=== PATIENT | female | born 1990 | race Caucasian/White ===

== ENCOUNTER 2016-11-29 08:16 | Emergency (ER) | payer OTHER, BC ==
[~2016-11-29] VITALS: Ht 170.2 cm; Wt 63.6 kg
[~2016-11-29 08:16] MED LIST: ACET50TA PO; FIOR1CAP PO; FIORCAP3 PO; IBUP80TA PO; VITAPRTA PO
[2016-11-29 08:40] VITALS: BP 129/85
[2016-11-29] MEDS ORDERED: DERMABOND TOPICAL SKIN ADHESIVE TOP ONE (09:30)
[2016-11-29] MEDS ORDERED: IBUP80TA PO (09:30)
[2016-11-29] MEDS ORDERED: KEFL500C17 PO (09:30)
[2016-11-29] MEDS ORDERED: CEPHALEXIN 500 MG CAP PO ONE (09:45)
[2016-11-29] MEDS ORDERED: IBUPROFEN 800 MG TAB PO ONE (09:45)
== END 2016-11-29 09:44 | disposition home or self-care (01) ==
LOC: M ED 08:16
DX: S61.211A Laceration without foreign body of left index finger without damage to nail, initial encounter (principal); W27.2XXA Contact with scissors, initial encounter; Y92.019 Unspecified place in single-family (private) house as the place of occurrence of the external cause; Y93.89 Activity, other specified; Y99.8 Other external cause status; J45.909 Unspecified asthma, uncomplicated; Z91.018 Allergy to other foods

== ENCOUNTER → 2017-01-25 | Outpatient (REF) | payer BC ==
[~2017-01-25] MED LIST changes: +KEFL500C17 PO
[2017-01-25 11:40] LABS: BASO # 0.1 10^3/uL (0.0-0.2); BASO % 1.2 % (0.0-1.0); EOS # 0.4 10^3/uL (0.0-0.50); EOS % 6.6 % (0.0-3.0); IMMATURE GRANULOCYTE % 0.3 % (0-0); LYMPH # 1.9 10^3/uL (1.5-6.5); LYMPH % 28.7 % (24.0-44.0); MEAN CORPUSCULAR HEMOGLOBIN 32.2 pg (27.0-33.0); MEAN CORPUSCULAR HGB CONC 34.8 g/dl (32.0-36.5); MEAN CORPUSCULAR VOLUME 92.5 fl (80.0-96.0); MONO # 0.6 10^3/uL (0.0-0.8); MONO % 8.7 % (0.0-5.0); NEUTROPHILS # 3.6 10^3/uL (1.8-7.7); NEUTROPHILS % 54.5 % (36.0-66.0); PLATELET COUNT, AUTOMATED 365 10^3/uL (150-450); WHITE BLOOD COUNT 6.7 10^3/uL (4.0-10.0)
[2017-01-25 12:28] LABS: ALBUMIN 4.1 GM/DL (3.2-5.2); ALBUMIN/GLOBULIN RATIO 1.46 (1.00-1.93); ALKALINE PHOSPHATASE 59 U/L (45-117); ALT/SGPT 17 U/L (12-78); ANION GAP 7 MEQ/L (8-16); AST/SGOT 10 U/L (7-37); BILIRUBIN,TOTAL 0.7 MG/DL (0.2-1.0); BLOOD UREA NITROGEN 17 MG/DL (7-18); CALCIUM LEVEL 9.2 MG/DL (8.5-10.1); CARBON DIOXIDE LEVEL 29 MEQ/L (21-32); CHLORIDE LEVEL 106 MEQ/L (98-107); CHOLESTEROL LEVEL 136 MG/DL (<200); CREATININE FOR GFR 0.77 MG/DL (0.55-1.02); FREE T4 1.07 NG/DL (0.76-1.46); GLOMERULAR FILTRATION RATE > 60.0 (>60); GLUCOSE, FASTING 81 MG/DL (70-105); POTASSIUM SERUM 4.4 MEQ/L (3.5-5.1); SODIUM LEVEL 142 MEQ/L (136-145); TOTAL PROTEIN 6.9 GM/DL (6.4-8.2); TRIGLYCERIDES LEVEL 35 MG/DL (<150)
== END ==
LOC: M SFHCCLAY 08:00
PROVIDERS: ATTEND Nurse Practitioner Family
DX: R03.0 Elevated blood-pressure reading, without diagnosis of hypertension (principal); G43.719 Chronic migraine without aura, intractable, without status migrainosus

== ENCOUNTER → 2017-07-28 | Outpatient (REF) | payer BC | LOC: M LAB REF 17:06 | DX: Z01.411 Encounter for gynecological examination (general) (routine) with abnormal findings (principal) | CPT/HCPCS: G0123 ==

== ENCOUNTER → 2017-11-01 | Outpatient (REF) | payer BC | LOC: M LAB REF 09:21 | DX: Z34.81 Encounter for supervision of other normal pregnancy, first trimester (principal); Z36.89 Encounter for other specified antenatal screening | CPT/HCPCS: 87086 ==

== ENCOUNTER → 2017-12-22 | Outpatient (CLI) | payer BC | LOC: M RAD 13:30 | DX: Z34.82 Encounter for supervision of other normal pregnancy, second trimester (principal); Z36.89 Encounter for other specified antenatal screening; Z3A.19 19 weeks gestation of pregnancy | CPT/HCPCS: 76811 ==

== ENCOUNTER → 2017-12-26 | Outpatient (REF) | payer BC | LOC: M LAB REF 13:08 | DX: Z34.82 Encounter for supervision of other normal pregnancy, second trimester (principal); Z36.89 Encounter for other specified antenatal screening | CPT/HCPCS: 87086 ==

== ENCOUNTER → 2018-02-07 | Outpatient (CLI) | payer BC ==
[~2018-02-07] MED LIST changes: -ACET50TA PO; +MAPA500T17 PO
[2018-02-07 14:19] LABS: HEMOGLOBIN 12.5 g/dl (12.0-15.5); MEAN CORPUSCULAR HEMOGLOBIN 32.8 pg (27.0-33.0); MEAN CORPUSCULAR HGB CONC 34.7 g/dl (32.0-36.5); MEAN CORPUSCULAR VOLUME 94.5 fl (80.0-96.0); PLATELET COUNT, AUTOMATED 288 10^3/uL (150-450); RED BLOOD COUNT 3.81 10^6/uL (4.00-5.40); WHITE BLOOD COUNT 12.2 10^3/uL (4.0-10.0)
== END ==
LOC: M LAB 11:48
PROVIDERS: ATTEND Advanced Practice Midwife
DX: Z34.82 Encounter for supervision of other normal pregnancy, second trimester (principal)

== ENCOUNTER → 2018-04-19 | Outpatient (REF) | payer BC ==
[~2018-04-19] MED LIST changes: -MAPA500T17 PO; +MAPA500T2 PO
== END ==
LOC: M LAB REF 17:04
PROVIDERS: ATTEND Advanced Practice Midwife
DX: Z34.83 Encounter for supervision of other normal pregnancy, third trimester (principal); Z3A.00 Weeks of gestation of pregnancy not specified

== ENCOUNTER 2018-05-10 06:16 | Outpatient (CLI) | payer BC ==
[~2018-05-10] VITALS: Ht 170.2 cm; Wt 81.0 kg
[2018-05-10 06:36] VITALS: BP 116/72
--- NOTE | 2018-05-10 07:24 | IPN ---
DATE: 05/10/2018 Geovanna is a 27-year-old, 2, para 1-0-0-1, at 38-6/7 weeks gestation with an expected date of confinement (EDC) of 05/18/2018 based on last menstrual period and confirmed by first trimester ultrasound. She presents to labor and delivery today with report of onset of contractions at 0330 that got closer together and more uncomfortable. She does however report that the contractions have spaced out since leaving home and arriving to labor and delivery. She denies vaginal bleeding or leakage of fluid. The fetus has been active. care was initiated at [facility] in the first trimester. course complicated by a personal history of asthma, cystic fibrosis carrier, father of the baby was tested and is not a carrier. OBSTETRICAL HISTORY: March 2015, 38-5/7 weeks, 6 pounds 12 ounces female, vaginal delivery, no complications. OBSTETRIC LABS: A+. Antibody screen negative. Pap normal. Rubella immune. VDRL nonreactive. Hepatitis B surface antigen negative. HIV negative. Hepatitis C antibody nonreactive. Gonorrhea and chlamydia negative. She did decline genetic serum screening labs. Gestational diabetic screening negative at 72. Her GBS is negative. PAST MEDICAL HISTORY: Cystic fibrosis carrier, asthma, childhood varicella. SURGERIES: Nasal surgery. FAMILY HISTORY: Hemophilia, cystic fibrosis, diabetes, hypertension, heart disease and thyroid disorder. SOCIAL HISTORY: The patient is . Her is at bedside. She is a nonsmoker. She denies alcohol and drug use. No history of any sexually transmitted infections. She denies history of abuse - physical, sexual and emotional. ALLERGIES: TREE NUTS. CURRENT MEDICATIONS: - vitamin - Fioricet p.r.n. for headache. OBJECTIVE: BP is 116/72. She is alert and oriented times three. She is in no discomfort. She is smiling and talkative, texting on her phone and conversing with her . heart rate is 145 with moderate variability, positive accelerations, no decelerations. There has been one isolated contraction in 15 minutes. Sterile Vaginal Exam: 2 cm dilated, 90% effaced, -3 station. No bloody show with exam. ASSESSMENT: Intrauterine at 38-6/7 weeks. heart rate category one. Not in active labor. PLAN: Discharge the patient home. She is to follow up as scheduled for routine appointment. I did review signs and symptoms of active labor, kick counts and access to care as well as other danger signs to report. The patient and her partner had their questions answered.
== END 2018-05-10 06:50 | disposition home or self-care (01) ==
LOC: M LDO 06:16
PROVIDERS: ATTEND Advanced Practice Midwife
DX: O47.1 False labor at or after 37 completed weeks of gestation (principal); Z3A.38 38 weeks gestation of pregnancy
CPT/HCPCS: 59025; G0378; G0463

== ENCOUNTER 2018-05-12 00:34 | Outpatient (CLI) | payer BC ==
--- NOTE | 2018-05-12 01:28 | IPNPDOC ---
Text Note Date of Service The patient was seen on 05/12/18. NOTE Outpatient 27yo BLAIRE 05/18/18. Presents @ 39w1d with reports of stronger UC this evening. Denies LOF or bleeding. Fetus active Cat I tracing Irregular UC SVE unchanged from previous exam, /2, moderate texture Discharged home. Routine precautions. Keep appt Monday Aimee Rico CNM May 12, 2018 01:28
== END 2018-05-12 01:30 | disposition home or self-care (01) ==
LOC: M LDO 00:34
PROVIDERS: ATTEND Advanced Practice Midwife
DX: O47.1 False labor at or after 37 completed weeks of gestation (principal); Z3A.39 39 weeks gestation of pregnancy
CPT/HCPCS: 59025; G0378; G0463

== ENCOUNTER 2018-05-15 18:40 | Inpatient (IN) | payer BC ==
[~2018-05-15] VITALS: Ht 170.2 cm; Wt 82.0 kg
[2018-05-15] MEDS ORDERED: LACTATED RINGER'S 1000 ML IV STA (19:00)
[2018-05-15] MEDS ORDERED: LR 1,000 ML IV SCH ×2 (19:00→20:43)
--- NOTE | 2018-05-15 19:16 | NUR ---
L&D H&P HPI: 27 year old at 39+4 weeks estimated gestation. Expected date of confinement: 05/18/2018. dated by her LMP c/w first TM US. Presents to day with painful, frequent uterine contractions and spontaneous rupture of membranes. Denies vaginal bleeding. Reports regular movement. course uncomplicated thus far. labs: Blood type A+, antibody screen negative, rubella immune, VDRL nonreactive , hepatitis B surface antigen negative, HIV negative, hepatitis C antibody negative, GC/CT negative, aneuploidy/maternal serum screening: declined, 1 hour glucose challenge test: 74, GBS negative. Vaccinations: Tdap 03/13/18 Flu vaccine 12/29/17 Radiology/OB US: no anomalies or placental abnormalities detected. History Past medical history: asthma Surgical history: Nasal Medications: PNV Allergies: NKDA CLINICAL QUALITY MANAGER history: no dysplasia or STI/gHSV OB history: Mar 2015, 38+5 weeks, , uncomplicated. Social history: no t/e/d Family history: DM, HTN, heart disease, thyroid dysfunction Objective Vitals: Normotensive, normal heart rate, afebrile Heart: Regular rate and rhythm. No murmurs, rubs or gallops. Lungs: Clear to auscultation bilaterally. No wheezes, crackles, rales or rhonchi. Abdomen: Uterine fundal height consistent with dates. No guarding or rebound tenderness. Extremities: No clubbing, cyanosis or edema. Normal deep tendon reflexes. Sterile vaginal exam: 5 cm, 100 %effacement, -1 station, cephalic, grossly ruptured External monitoring: heart rate category 1 Tocodynamometer: contractions occurring every 2-5min. Assessment/Plan 27 year old at 39+4 weeks gestation. Diagnosis: active labor at term. Reassuring and maternal status. -Admit to labor and delivery with routine labs and orders -External monitoring and tocodynamometer -Pediatrics and anesthesia consultations as needed. -Augment labor with Pitocin as needed Dr. Remigio Jacques, DO, FACOG
[2018-05-15 19:24] VITALS: BP 137/81
[2018-05-15 19:28] LABS: HEMATOCRIT 37.5 % (36.0-47.0); HEMOGLOBIN 13.3 g/dl (12.0-15.5); MEAN CORPUSCULAR HEMOGLOBIN 33.9 pg (27.0-33.0); MEAN CORPUSCULAR HGB CONC 35.5 g/dl (32.0-36.5); MEAN CORPUSCULAR VOLUME 95.7 fl (80.0-96.0); PLATELET COUNT, AUTOMATED 197 10^3/uL (150-450); RED BLOOD COUNT 3.92 10^6/uL (4.00-5.40); WHITE BLOOD COUNT 18.1 10^3/uL (4.0-10.0)
[2018-05-15] MEDS ORDERED: FENTANYL 2MCG/ML ROPIVACAINE 0.2% IN 0.9% NACL 100ML IVBAG As Ordered ONE (19:30)
[2018-05-15] MEDS ORDERED: LACTATED RINGER'S 1000 ML IV PRN (19:42)
[2018-05-15] MEDS ORDERED: ONDANSETRON 4MG/2ML VIAL (J2405) IV PRN ×2 (19:42→20:45)
[2018-05-15] MEDS ORDERED: REFRIGERATOR IV KEYS XX PRN (19:42)
[2018-05-15] MEDS ORDERED: FENTANYL/ROPIVACAINE/NACL BAG 100 ML EPIDURAL SCH (19:42)
[2018-05-15] MEDS ORDERED: ePHEDrine SULFATE 25 MG/5 ML(5MG/ML) SYRINGE IV PRN (19:42)
[2018-05-15] MEDS ORDERED: EPIDURAL/PCA KEYS XX PRN (19:42)
[2018-05-15] MEDS ORDERED: NALOXONE INJ 0.4 MG/1 ML VIAL (J2310) IV PRN (19:42)
[2018-05-15] MEDS ORDERED: EPIDURAL COMMENT XX SCH (19:42)
[2018-05-15] MEDS ORDERED: diphenhydrAMINE INJ 50MG/ML VIAL (J1200) IV PRN (19:42)
[2018-05-15] MEDS ORDERED: OXYTOCIN 30 UNITS IN 0.9% NaCl 500ML IV BAG (J2590) As Ordered ONE (19:49)
[2018-05-15] MEDS ORDERED: OXYTOCIN DRIP 30 UNITS in APPROPRIATE DILUENT 1 EA IV SCH (20:43)
[2018-05-15] MEDS ORDERED: RHOGAM 300 MCG (1500 IU) INJ (J2790) IM SCH (20:45)
[2018-05-15] MEDS ORDERED: MEASLES,MUMPS,RUBELLA VACCINE INJ (MMR-II) (90707) SC SCH (20:45)
[2018-05-15] MEDS ORDERED: ACETAMINOPHEN 500 MG TAB PO PRN (20:45)
[2018-05-15] MEDS ORDERED: PROMETHAZINE 25 MG TAB PO PRN (20:45)
[2018-05-15] MEDS ORDERED: DOCUSATE SODIUM 100 MG CAP PO PRN (20:45)
[2018-05-15] MEDS ORDERED: LIDOCAINE 1% MDV 20ML VIAL INFIL ONE (20:45)
--- NOTE | 2018-05-15 20:50 | NUR ---
Delivery note Spontaneous vaginal delivery Estimated gestational age at delivery: 39+4 weeks The active phase and second stage of labor progressed in normal fashion without epidural anesthesia. Patient did not receive Pitocin labor augmentation. heart rate category 1 throughout labor The head delivered left occiput anterior and restituted left occiput transverse. No nuchal cord was noted. The anterior shoulder delivered with gentle downward guidance and the remainder of the body delivered with ease. Cord clamping was delayed for approximately 1 minute after delivery. After doubly clamping the cord, I cut the cord. The was placed on the patient's chest for immediate bonding. data: Apgars 9 and 9. weight 2970 grams 6 pounds, 9 ounces. Time of delivery: 2014. Sex: female The third stage of labor was actively managed with a bolus of IV Pitocin (30 units in 500 mL of normal saline). The placenta delivered completely intact with no missing cotyledons at 2019. A three-vessel cord with a central insertion was noted. After delivery of the placenta, the uterine fundus was approximately 2 cm below the umbilicus and firm. IV Pitocin was continued to maintain uterine tone. A normal, low level of uterine bleeding was noted. The cervix, vagina, vulva and perineum were inspected for lacerations. A second-degree laceration was noted. This was repaired with 3-0 Vicryl in typical fashion under local anesthesia. Excellent hemostasis was noted. Estimated blood loss: 200ml All sponges, needles, and instruments were accounted for per TELECOMMUNICATIONS ENGINEER department protocol. Remigio Jacques D.O., F.A.C.O.G.
[2018-05-15] MEDS: IBUPROFEN 800 MG TAB PO PRN (20:52)
[2018-05-15 22:59] VITALS: BP 118/66
[2018-05-15] MEDS: DIBUCAINE 1% OINTMENT 30GM TOP PRN (23:56)
[2018-05-16 06:07] VITALS: BP 118/75
--- NOTE | 2018-05-16 08:38 | NUR ---
PPD#1 Pain well controlled, voiding spontaneously, tolerating PO, ambulating without difficulty, lochia decreasing/minimal. VSS, normotensive, afebrile H: RRR L: CTA b/l Abd: soft,nt,nd, fundus firm Ext: no c/c/e A/P: PPD#1. Recovering well. Hemodynamically stable, afebrile, with good pain control. -Routine care -D/c home tomorrow. -Routine fever/infectious, pain, bleeding precautions reviewed -F/u in 6-8 weeks or sooner PRN. Edis Jacques DO
[2018-05-16] MEDS: PRENATAL VITAMINS CHEWABLE TABLET PO SCH (08:43)
[2018-05-16] MEDS: IBUPROFEN 800 MG TAB PO PRN ×2 (08:44→18:06)
[2018-05-16 18:00] VITALS: BP 115/71
[2018-05-17 06:00] VITALS: BP 120/74
[2018-05-17] MEDS: DIBUCAINE 1% OINTMENT 30GM TOP PRN (06:22)
[2018-05-17] MEDS: PRENATAL VITAMINS CHEWABLE TABLET PO SCH (08:46)
[2018-05-17] MEDS ORDERED: PRENTAB9 PO (09:30)
== END 2018-05-17 11:00 | disposition home or self-care (01) | DRG 560 ==
LOC: M LDO 18:40 → M LDI 19:15 → M OBS 21:39 → M LDI 21:40 → M OBS 22:53
PROVIDERS: ADMIT Obstetrics & Gynecology; ATTEND Obstetrics & Gynecology
PROC: 10E0XZZ Delivery of Products of Conception, External Approach (ICD-10-PCS; principal; 2018-05-15)
PROC: 0KQM0ZZ Repair Perineum Muscle, Open Approach (ICD-10-PCS; 2018-05-15)
DX: O70.1 Second degree perineal laceration during delivery (principal); Z37.0 Single live birth; Z3A.39 39 weeks gestation of pregnancy

== ENCOUNTER → 2019-12-12 | Outpatient (REF) | payer BC ==
[~2019-12-12] MED LIST changes: +PRENTAB9 PO
== END ==
LOC: M PLALAB 11:53
PROVIDERS: ATTEND Specialist
DX: N92.6 Irregular menstruation, unspecified (principal)

== ENCOUNTER → 2019-12-13 | Outpatient (REF) | payer BC | LOC: M PLALAB 16:15 | PROVIDERS: ATTEND Specialist | DX: N92.6 Irregular menstruation, unspecified (principal) ==

== ENCOUNTER → 2019-12-16 | Outpatient (REF) | payer BC | LOC: M PLALAB 12:52 | PROVIDERS: ATTEND Specialist | DX: N92.6 Irregular menstruation, unspecified (principal) ==

== ENCOUNTER → 2020-07-08 | Outpatient (REF) | payer BC | LOC: M SFHCWAGY 16:51 | PROVIDERS: ATTEND Obstetrics & Gynecology | DX: Z12.4 Encounter for screening for malignant neoplasm of cervix (principal) | CPT/HCPCS: 87624; G0123 ==

== ENCOUNTER → 2020-07-08 | Outpatient (REF) | payer BC ==
[2020-07-09 12:31] LABS: BASO # 0.1 10^3/uL (0.0-0.2); BASO % 0.9 % (0.0-1.0); EOS # 0.1 10^3/uL (0.0-0.5); EOS % 1.3 % (0.0-3.0); HEMATOCRIT 41.6 % (36.0-47.0); HEMOGLOBIN 14.1 g/dl (12.0-15.5); LYMPH # 1.9 10^3/uL (1.5-5.0); LYMPH % 21.6 % (24.0-44.0); MEAN CORPUSCULAR HEMOGLOBIN 32.9 pg (27.0-33.0); MEAN CORPUSCULAR HGB CONC 33.9 g/dl (32.0-36.5); MEAN CORPUSCULAR VOLUME 97.2 fl (80.0-96.0); MONO # 0.6 10^3/uL (0.0-0.8); MONO % 7.3 % (2.0-8.0); NEUTROPHILS % 68.6 % (36.0-66.0); PLATELET COUNT, AUTOMATED 326 10^3/uL (150-450); RED BLOOD COUNT 4.28 10^6/uL (4.00-5.40); WHITE BLOOD COUNT 8.8 10^3/uL (4.0-10.0)
[2020-07-09 13:05] LABS: ALBUMIN 4.2 GM/DL (3.2-5.2); ALT/SGPT 15 U/L (12-78); BILIRUBIN,TOTAL 0.7 MG/DL (0.2-1.0); BLOOD UREA NITROGEN 10 MG/DL (7-18); CALCIUM LEVEL 9.3 MG/DL (8.5-10.1); CARBON DIOXIDE LEVEL 31 MEQ/L (21-32); CHLORIDE LEVEL 106 MEQ/L (98-107); CHOLESTEROL LEVEL 140 MG/DL (<200); CHOLESTEROL RISK RATIO 1.521 (<5); CREATININE FOR GFR 0.73 MG/DL (0.55-1.30); FREE T4 0.89 NG/DL (0.76-1.46); GLOMERULAR FILTRATION RATE > 60.0 (>60); GLUCOSE, FASTING 92 MG/DL (70-100); HDL CHOLESTEROL 92 MG/DL (>40); LDL CHOLESTEROL 37 MG/DL (<100); NON-HDL-C 48 MG/DL; POTASSIUM SERUM 5.4 MEQ/L (3.5-5.1); SODIUM LEVEL 140 MEQ/L (136-145); TOTAL PROTEIN 6.9 GM/DL (6.4-8.2); TRIGLYCERIDES LEVEL 55 MG/DL (<150)
== END ==
LOC: M PLALAB 12:05
PROVIDERS: ATTEND Obstetrics & Gynecology
DX: R63.4 Abnormal weight loss (principal); Z13.220 Encounter for screening for lipoid disorders; G44.209 Tension-type headache, unspecified, not intractable

== ENCOUNTER → 2021-02-04 | Outpatient (REF) | payer BC ==
[~2021-02-04] MED LIST changes: +ATOM60CA PO; +IMIT100T PO; +LEXA5TAB13 PO
[2021-02-04 11:39] LABS: BASO # 0.1 10^3/uL (0.0-0.2); EOS # 0.3 10^3/uL (0.0-0.5); EOS % 4.3 % (0.0-3.0); HEMATOCRIT 42.2 % (36.0-47.0); HEMOGLOBIN 14.6 g/dl (12.0-15.5); LYMPH # 1.8 10^3/uL (1.5-5.0); LYMPH % 30.6 % (24.0-44.0); MEAN CORPUSCULAR HEMOGLOBIN 32.6 pg (27.0-33.0); MEAN CORPUSCULAR HGB CONC 34.6 g/dl (32.0-36.5); MEAN CORPUSCULAR VOLUME 94.2 fl (80.0-96.0); MONO # 0.6 10^3/uL (0.0-0.8); MONO % 10.3 % (2.0-8.0); NEUTROPHILS # 3.1 10^3/uL (1.5-8.5); NEUTROPHILS % 53.6 % (36.0-66.0); PLATELET COUNT, AUTOMATED 317 10^3/uL (150-450); RED BLOOD COUNT 4.48 10^6/uL (4.00-5.40); WHITE BLOOD COUNT 5.8 10^3/uL (4.0-10.0)
[2021-02-04 12:08] LABS: ALT/SGPT 19 U/L (12-78); BLOOD UREA NITROGEN 20 MG/DL (7-18); CALCIUM LEVEL 9.5 MG/DL (8.5-10.1); CARBON DIOXIDE LEVEL 28 MEQ/L (21-32); CHLORIDE LEVEL 106 MEQ/L (98-107); CREATININE FOR GFR 0.84 MG/DL (0.55-1.30); GLOMERULAR FILTRATION RATE > 60.0 (>60); GLUCOSE, FASTING 85 MG/DL (70-100); SODIUM LEVEL 139 MEQ/L (136-145)
[2021-02-04 12:09] LABS: ALBUMIN 4.1 GM/DL (3.2-5.2); BILIRUBIN,TOTAL 0.9 MG/DL (0.2-1.0); IRON (FE) 180 UG/DL (50-170); PERCENT SATURATION 61.2 % (13.2-45.0); TOTAL IRON BINDING CAPACITY 294 UG/DL (250-450); TOTAL PROTEIN 6.6 GM/DL (6.4-8.2)
[2021-02-09 16:09] LABS: SOLUBLE TRANSFERRIN RECEPTOR 14.8 nmol/L (12.2-27.3)
== END ==
LOC: M SFHCCLAY 07:43
PROVIDERS: ATTEND Nurse Practitioner Family
DX: R79.0 Abnormal level of blood mineral (principal); T14.8XXA Other injury of unspecified body region, initial encounter

== ENCOUNTER → 2021-03-03 | Outpatient (REF) | payer BC ==
[~2021-03-03] MED LIST changes: -ATOM60CA PO; -IMIT100T PO; -LEXA5TAB13 PO
[2021-03-03 12:05] LABS: HEMATOCRIT 40.4 % (36.0-47.0); HEMOGLOBIN 13.8 g/dl (12.0-15.5); MEAN CORPUSCULAR HEMOGLOBIN 32.6 pg (27.0-33.0); MEAN CORPUSCULAR HGB CONC 34.2 g/dl (32.0-36.5); MEAN CORPUSCULAR VOLUME 95.5 fl (80.0-96.0); PLATELET COUNT, AUTOMATED 290 10^3/uL (150-450); RED BLOOD COUNT 4.23 10^6/uL (4.00-5.40); WHITE BLOOD COUNT 5.8 10^3/uL (4.0-10.0)
[2021-03-03 12:59] LABS: PERCENT SATURATION 48.2 % (13.2-45.0)
== END ==
LOC: M SFHCCLAY 07:29
PROVIDERS: ATTEND Family Medicine
DX: R79.0 Abnormal level of blood mineral (principal)

== ENCOUNTER → 2021-05-25 | Outpatient (CLI) | payer BC ==
[~2021-05-25] MED LIST changes: +ATOM60CA PO; +IMIT100T PO; +LEXA5TAB13 PO
== END ==
LOC: M CLY 13:40
PROVIDERS: ATTEND Physician Assistant
DX: R91.8 Other nonspecific abnormal finding of lung field (principal); R50.9 Fever, unspecified

== ENCOUNTER → 2021-06-28 | Outpatient (REF) | payer BC ==
[2021-06-28 11:56] LABS: BASO # 0.1 10^3/uL (0.0-0.2); BASO % 0.7 % (0.0-1.0); EOS # 0.5 10^3/uL (0.0-0.5); EOS % 6.7 % (0.0-3.0); HEMATOCRIT 40.6 % (36.0-47.0); HEMOGLOBIN 13.9 g/dl (12.0-15.5); LYMPH # 1.4 10^3/uL (1.5-5.0); LYMPH % 20.5 % (24.0-44.0); MEAN CORPUSCULAR HEMOGLOBIN 33.1 pg (27.0-33.0); MEAN CORPUSCULAR HGB CONC 34.2 g/dl (32.0-36.5); MEAN CORPUSCULAR VOLUME 96.7 fl (80.0-96.0); MONO # 0.5 10^3/uL (0.0-0.8); MONO % 6.7 % (2.0-8.0); NEUTROPHILS # 4.5 10^3/uL (1.5-8.5); PLATELET COUNT, AUTOMATED 305 10^3/uL (150-450); WHITE BLOOD COUNT 6.9 10^3/uL (4.0-10.0)
[2021-06-28 12:34] LABS: FERRITIN 24 NG/ML (8-252); IRON (FE) 71 UG/DL (50-170)
== END ==
LOC: M SFHCCLAY 07:36
PROVIDERS: ATTEND Nurse Practitioner Family
DX: R79.0 Abnormal level of blood mineral (principal)

== ENCOUNTER → 2021-08-24 | Outpatient (REF) | payer BC | LOC: M SFHCCLAY 07:43 | PROVIDERS: ATTEND Nurse Practitioner Family | DX: Z13.811 Encounter for screening for lower gastrointestinal disorder (principal); Z83.79 Family history of other diseases of the digestive system ==

== ENCOUNTER → 2021-10-21 | Outpatient (REF) | payer BC ==
[2021-10-21 12:17] LABS: BASO # 0.1 10^3/uL (0.0-0.2); BASO % 1.3 % (0.0-1.0); EOS # 0.3 10^3/uL (0.0-0.5); EOS % 4.9 % (0.0-3.0); HEMATOCRIT 41.4 % (36.0-47.0); HEMOGLOBIN 13.7 g/dl (12.0-15.5); LYMPH # 1.6 10^3/uL (1.5-5.0); LYMPH % 28.6 % (24.0-44.0); MEAN CORPUSCULAR HEMOGLOBIN 31.9 pg (27.0-33.0); MEAN CORPUSCULAR HGB CONC 33.1 g/dl (32.0-36.5); MEAN CORPUSCULAR VOLUME 96.3 fl (80.0-96.0); MONO # 0.5 10^3/uL (0.0-0.8); MONO % 9.3 % (2.0-8.0); NEUTROPHILS # 3.1 10^3/uL (1.5-8.5); NEUTROPHILS % 55.7 % (36.0-66.0); PLATELET COUNT, AUTOMATED 296 10^3/uL (150-450); WHITE BLOOD COUNT 5.5 10^3/uL (4.0-10.0)
[2021-10-21 12:57] LABS: FERRITIN 47 NG/ML (8-252); IRON (FE) 162 UG/DL (50-170)
== END ==
LOC: M LABDRAWC 11:43
PROVIDERS: ATTEND Internal Medicine Hematology & Oncology
DX: E61.1 Iron deficiency (principal)

== ENCOUNTER → 2021-12-15 | Outpatient (CLI) | payer OTHER ==
[~2021-12-15] MED LIST changes: +CLAR5TAB11 PO; +DEXTROAMP-AMPHETAMIN; +EXCETAB32 PO; +PRE NATAL VITAMINS PO
[2021-12-15 19:36] LABS: FOLLICLE STIMULATING HORMONE 5.3 mIU/mL; LUTEINIZING HORMONE 2.2 mIU/mL; PROGESTERONE 19.41 NG/ML; PROLACTIN 6.5 NG/ML
== END ==
LOC: M PLALAB 10:11
PROVIDERS: ATTEND Specialist
DX: N92.6 Irregular menstruation, unspecified (principal)
CPT/HCPCS: 36415; 83001; 83002; 84144; 84146; 87624; G0123

== ENCOUNTER → 2022-06-28 | Outpatient (REF) | payer OTHER ==
[2022-06-28 12:44] LABS: BASO # 0.1 10^3/uL (0.0-0.2); BASO % 1.4 % (0.0-1.0); EOS # 0.2 10^3/uL (0.0-0.5); HEMATOCRIT 39.7 % (36.0-47.0); HEMOGLOBIN 13.5 g/dl (12.0-15.5); LYMPH # 1.3 10^3/uL (1.5-5.0); LYMPH % 28.7 % (24.0-44.0); MEAN CORPUSCULAR HEMOGLOBIN 32.5 pg (27.0-33.0); MEAN CORPUSCULAR VOLUME 95.7 fl (80.0-96.0); MONO # 0.4 10^3/uL (0.0-0.8); MONO % 8.4 % (2.0-8.0); NEUTROPHILS # 2.5 10^3/uL (1.5-8.5); NEUTROPHILS % 56.3 % (36.0-66.0); PLATELET COUNT, AUTOMATED 282 10^3/uL (150-450); RED BLOOD COUNT 4.15 10^6/uL (4.00-5.40); WHITE BLOOD COUNT 4.4 10^3/uL (4.0-10.0)
[2022-06-28 13:10] LABS: ALBUMIN 4.3 G/DL (3.2-5.2); ALKALINE PHOSPHATASE 52 U/L (46-116); ALT/SGPT 20 U/L (7.0-40); AST/SGOT 14 U/L (<34); BILIRUBIN,TOTAL 0.8 MG/DL (0.3-1.2); BLOOD UREA NITROGEN 12 MG/DL (9-23); CALCIUM LEVEL 9.3 MG/DL (8.5-10.1); CARBON DIOXIDE LEVEL 29 MMOL/L (20-31); CHLORIDE LEVEL 107 MMOL/L (98-107); CREATININE FOR GFR 0.84 MG/DL (0.55-1.30); FREE T4 1.06 NG/DL (0.89-1.76); GLOMERULAR FILTRATION RATE > 60.0 (>60); GLUCOSE, FASTING 88 MG/DL (60-100); IRON (FE) 101 UG/DL (50-170); POTASSIUM SERUM 4.3 MMOL/L (3.5-5.1); SODIUM LEVEL 139 MMOL/L (136-145); TOTAL PROTEIN 6.5 G/DL (5.7-8.2)
[2022-06-28 13:11] LABS: THYROID STIMULATING HORMONE 2.436 uIU/ML (0.55-4.78)
== END ==
LOC: M SFHCCLAY 07:35
PROVIDERS: ATTEND Nurse Practitioner Family
DX: R79.0 Abnormal level of blood mineral (principal); T14.8XXA Other injury of unspecified body region, initial encounter; R63.4 Abnormal weight loss; Z13.220 Encounter for screening for lipoid disorders; G44.209 Tension-type headache, unspecified, not intractable

== ENCOUNTER → 2022-12-27 | Outpatient (CLI) | payer OTHER | LOC: M WHC 11:44 | PROVIDERS: ATTEND Nurse Practitioner Family | DX: N83.202 Unspecified ovarian cyst, left side (principal) ==

== ENCOUNTER → 2022-12-28 | Outpatient (CLI) | payer OTHER ==
[2022-12-28 14:13] LABS: FREE T4 1.05 NG/DL (0.89-1.76)
[2022-12-28 14:15] LABS: FOLLICLE STIMULATING HORMONE 1.9 mIU/ML; LUTEINIZING HORMONE 3.2 mIU/ML; PROLACTIN 10.82 NG/ML
[2022-12-28 14:16] LABS: ESTRADIOL 167.2 PG/ML; THYROID STIMULATING HORMONE 2.492 uIU/ML (0.55-4.78)
[2022-12-28 14:17] LABS: PROGESTERONE 12.86 NG/ML
[2022-12-28 14:38] LABS: HIV 1&2 SCREEN NEGATIVE (NEGATIVE)
[2022-12-28 14:47] LABS: HEPATITIS B CORE ANTIBODY IGM NEGATIVE (NEGATIVE); HEPATITIS C VIRUS ABY INDEX 0.04 INDEX (<0.8)
[2022-12-28 16:47] LABS: CHLAMYDIA DNA AMPLIFICATION NEGATIVE (NEGATIVE); GC DNA AMPLIFICATION NEGATIVE (NEGATIVE)
[2022-12-29 18:08] LABS: TESTOSTERONE FREE (DIRECT) < 0.2 pg/mL (0.0-4.2); VITAMIN D 1,25 DIHYDROXY 41.5 pg/mL (24.8-81.5)
== END ==
LOC: M PLALAB 09:47
PROVIDERS: ATTEND Nurse Practitioner Family
DX: Z12.4 Encounter for screening for malignant neoplasm of cervix (principal)
CPT/HCPCS: 36415; 82652; 82670; 83001; 83002; 84144; 84146; 84402; 84403; 84439; 84443; 86705; 86780; 86803; 87340; 87389; 87624; 87661; 87810; 87850; G0123

== ENCOUNTER → 2023-02-08 | Outpatient (CLI) | payer OTHER | LOC: M WHC 11:41 | PROVIDERS: ATTEND Nurse Practitioner Family | DX: N83.202 Unspecified ovarian cyst, left side (principal) ==

== ENCOUNTER → 2024-01-01 | Outpatient (REF) | payer OTHER | LOC: M SFHCWAGY 12:40 | PROVIDERS: ATTEND Nurse Practitioner Family | DX: N73.9 Female pelvic inflammatory disease, unspecified (principal) ==

== ENCOUNTER → 2025-01-13 | Outpatient (REF) | payer BC ==
[2025-01-13 12:58] LABS: BASO # 0.0 10^3/uL (0.0-0.2); BASO % 0.4 % (0.0-1.0); EOS # 0.2 10^3/uL (0.0-0.5); EOS % 2.3 % (0.0-3.0); LYMPH # 1.3 10^3/uL (1.5-5.0); LYMPH % 18.8 % (24.0-44.0); MONO # 0.5 10^3/uL (0.0-0.8); MONO % 7.3 % (2.0-8.0); NEUTROPHILS # 5.0 10^3/uL (1.5-8.5); NEUTROPHILS % 70.9 % (36.0-66.0); PLATELET COUNT, AUTOMATED 262 10^3/uL (150-450)
[2025-01-13 13:01] LABS: ALT/SGPT 21 U/L (7.0-40); AST/SGOT 15 U/L (<34); CALCIUM LEVEL 8.7 MG/DL (8.5-10.1); CARBON DIOXIDE LEVEL 30 MMOL/L (20-31); CHLORIDE LEVEL 107 MMOL/L (98-107); CREATININE FOR GFR 0.81 MG/DL (0.55-1.30); GLOMERULAR FILTRATION RATE > 90.0 (>60); IRON (FE) 106 UG/DL (50-170); POTASSIUM SERUM 4.3 MMOL/L (3.5-5.1); SODIUM LEVEL 142 MMOL/L (136-145)
[2025-01-13 13:05] LABS: T UPTAKE 33.8 % (22.5-37.0)
[2025-01-13 14:00] LABS: THYROXINE (T4) 5.1 UG/DL (4.5-10.9)
== END ==
LOC: M SFHCCLAY 08:45
PROVIDERS: ATTEND Nurse Practitioner Family
DX: R53.82 Chronic fatigue, unspecified (principal)

== ENCOUNTER → 2025-01-20 | Outpatient (REF) | payer BC ==
[2025-01-20 17:52] LABS: C REACTIVE PROTEIN QUANTITATIV < 0.50 MG/DL (<1.0); RHEUMATOID FACTOR QUANT 5.6 IU/ML (<14)
[2025-01-23 11:42] LABS: SSA SJOGRENS A <1.0 NEG AI (<1.0 NEG); SSB SJOGRENS B <1.0 NEG AI (<1.0 NEG)
== END ==
LOC: M SFHCCLAY 11:48
PROVIDERS: ATTEND Nurse Practitioner Family
DX: M25.50 Pain in unspecified joint (principal); R53.83 Other fatigue